=== PATIENT | male | born 1975 ===

== ENCOUNTER 2018-06-29 08:01 | Emergency (ER) | payer OTHER ==
[2018-06-29 08:09] VITALS: RESP 20
--- NOTE | 2018-06-29 08:23 | C.PDOC ---
History Of Present Illness 42 yo male, no prior hx, presnt with cp x 1 week. pt poor histoarin, "states his lungs hurt". 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 mild cough. no fevers, no pmd. no recent travel leg swelling. Time Seen by Provider: 06/29/18 08:13 Chief Complaint (Nursing): Chest Pain Past Medical History Reviewed: Historical Data, Nursing Documentation, Vital Signs Vital Signs: Last Vital Signs Temp 98.8 F 06/29/18 08:04 Pulse 91 H 06/29/18 08:04 Resp 20 06/29/18 08:04 BP 155/100 H 06/29/18 08:04 Pulse Ox 102 H 06/29/18 08:04 Family History: States: Unknown Family Hx - Social History Hx Alcohol Use: No Hx Substance Use: No - Immunization History Hx Tetanus Toxoid Vaccination: No Hx Influenza Vaccination: No Hx Pneumococcal Vaccination: No Review Of Systems Except As Marked, All Systems Reviewed And Found Negative. Cardiovascular: Positive for: Chest Pain Respiratory: Positive for: Cough Physical Exam - Physical Exam Appears: Well, No Acute Distress Skin: Normal Color, Warm, Dry Eye(s): bilateral: Normal Inspection, PERRL, EOMI Nose: Normal Throat: Normal Neck: Normal Cardiovascular: Rhythm Regular Respiratory: Normal Breath Sounds, No Rales, No Rhonchi, No Stridor Gastrointestinal/Abdominal: Normal Exam Back: Normal Inspection Extremity: Normal ROM ED Course And Treatment - Laboratory Results Result Diagrams: 06/29/18 09:09 06/29/18 09:09 O2 Sat by Pulse Oximetry: 102 Medical Decision Making Medical Decision Making: atypcial cp. perc neg. labs imaging pending atypical cp. perc neg. ekg nsr 94, no st t wave changes. pt observed in nad. ekg wnl. pain x 1 week neg trop. cxr neg , no widened mediastium. pt observed on phone in nad. advise outpt fu. lungs cta. return precautiosn advised. Disposition - Disposition Referrals: [facility] [Outside] [facility] [Outside] Josafat Overton MD [Staff Provider] - Disposition: HOME/ ROUTINE Disposition Time: 10:00 Condition: STABLE Additional Instructions: follow up with your doctor/clinic please see specialist. reutrn to er with worsening symptoms or concerns. Instructions: Chest Pain, Shortness of Breath (Dyspnea) Forms: [facility] (Yoruba) - Clinical Impression Clinical Impression: Chest pain
--- NOTE | 2018-06-29 09:08 | RAD ---
Date of service: 06/29/2018 HISTORY: Chest pain COMPARISON: None available. FINDINGS: LUNGS: No active pulmonary disease. PLEURA: No significant pleural effusion identified, no pneumothorax apparent. CARDIOVASCULAR: No aortic atherosclerotic calcification present. Normal cardiac size. No pulmonary vascular congestion. OSSEOUS STRUCTURES: No significant abnormalities. VISUALIZED UPPER ABDOMEN: Normal. OTHER FINDINGS: None. IMPRESSION: No active disease.
[2018-06-29 09:20] LABS: BASO % 0.7 % (0.0-2.0); EOS # 0.3 K/uL (0.0-0.7); EOS % 4.1 % (0.0-4.0); LYMPH # 1.6 K/uL (1.0-4.3); LYMPH % 24.1 % (20.0-40.0); MEAN CELL VOLUME 91.5 fL (80.0-94.0); MEAN CORPUSCULAR HEMOGLOBIN 30.9 pg (27.0-31.0); MEAN CORPUSCULAR HGB CONC 33.7 g/dL (33.0-37.0); MEAN PLATELET VOLUME 8.5 fL (7.2-11.7); MONO # 0.7 K/uL (0.0-0.8); MONO % 11.1 % (0.0-10.0); NEUT # 3.9 K/uL (1.8-7.0); RBC 4.86 Mil/uL (4.40-5.90); RED CELL DISTRIBUTION WIDTH 12.9 % (11.5-14.5); WHITE BLOOD COUNT 6.5 K/uL (4.8-10.8)
[2018-06-29 09:30] LABS: PROTHROMBIN TIME 11.1 SECONDS (9.7-12.2)
[2018-06-29 09:35] LABS: ALB/GLOB RATIO 1.5 (1.0-2.1); ALBUMIN 4.7 g/dL (3.5-5.0); ALT/SGPT 30 U/L (21-72); AST/SGOT 30 U/L (17-59); BLOOD UREA NITROGEN 11 mg/dL (9-20); CALCIUM 9.5 mg/dl (8.6-10.4); GFR NON-AFRICAN AMERICAN > 60
[2018-06-29 09:47] LABS: B-TYPE NATRIURETIC PEPTIDE 26.6 pg/mL (0-450)
[2018-06-29 09:57] VITALS: BP 152/89; PULSE 83; TEMP 98.6
[2018-07-02 07:06] VITALS: O2SAT 102
--- NOTE | 2018-07-03 22:25 | CARD ---
APPROVED REPORT Date of service: 06/29/2018 EKG Measurement Heart [id number] CO [id number] <Conclusion> Normal sinus rhythm Normal ECG
== END 2018-06-29 09:59 | disposition home or self-care (01) ==
LOC: C.ER 08:01
DX: R07.9 Chest pain, unspecified (principal)